=== PATIENT | female | born 1970 | race Caucasian/White ===

== ENCOUNTER → 2016-09-12 | Outpatient (CLI) | payer BC ==
--- NOTE | 2016-09-12 18:35 | DI ---
History: Right knee pain. 4 view study. Findings: Bony structures intact. Patellofemoral junction normal. Prominent fabella, normal variant. Impression: No focal bony abnormalities observed
== END ==
LOC: ORTHO 16:51
PROVIDERS: ATTEND Orthopaedic Surgery
DX: M25.561 Pain in right knee (principal); M22.2X1 Patellofemoral disorders, right knee
CPT/HCPCS: 73564

== ENCOUNTER → 2017-01-18 | Outpatient (CLI) | payer BC, OTHER | LOC: LAB 09:00 | PROVIDERS: ATTEND Student in an Organized Health Care Education/Training Program | DX: E55.9 Vitamin D deficiency, unspecified (principal) | CPT/HCPCS: 36415; 82306 ==